=== PATIENT | male | born 1970 | race Caucasian/White ===

== ENCOUNTER → 2017-04-11 | Outpatient (REF) | payer OTHER ==
[2017-04-18 14:09] LABS: Amphetamine Positive (.); GC Amphetamine 2373 ng/mL (Cutoff=500); GC Methamphetam >4000 ng/mL (Cutoff=500); Methamphetamine Positive (.)
== END ==
LOC: M LAB REF 13:51
PROVIDERS: ATTEND Physical Medicine & Rehabilitation
DX: M48.02 Spinal stenosis, cervical region (principal)
CPT/HCPCS: 80307; G0480